=== PATIENT | male | born 1955 ===

== ENCOUNTER 2017-11-21 08:33 | Day surgery (SDC) | payer BC, OTHER ==
[2017-11-19 17:25] VITALS: BMI 25.3
--- NOTE | 2017-11-20 20:36 | CP.PCM.CON ---
History of Present Illness - History of Present Illness History of Present Illness: Neurology Consultation Note: Mr. 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 He had a ANUPAMA that did not show cardiac thrombus. He was started on aspirin and plavix and discharged home to follow up. However, he returned to the hospital with complains of worsening right side weakness, dizziness and difficulty with ambulation. Symptoms have since subsided and he is back to his baseline. He has a Jamison catheter wish evidence of a slight red tinge to the urine. Review of Systems - Review of Systems All systems: reviewed and no additional remarkable complaints except Past Patient History - Past Medical History & Family History Past Medical History?: Yes - Past Social History Smoking Status: Never Smoked - CARDIAC Hx Cardiac Disorders: Yes - PULMONARY Hx Respiratory Disorders: No - NEUROLOGICAL Hx Transient Ischemic Attacks (TIA): Yes - HEENT Hx HEENT Problems: No - HEMATOLOGICAL/ONCOLOGICAL Hx Human Immunodeficiency Virus (HIV): No - INTEGUMENTARY Hx Dermatological Problems: No - MUSCULOSKELETAL/RHEUMATOLOGICAL Hx Rheumatoid Arthritis: Yes - GASTROINTESTINAL Hx Gastrointestinal Disorders: No - GENITOURINARY/GYNECOLOGICAL Hx Prostate Problems: Yes - PSYCHIATRIC Hx Substance Use: No - SURGICAL HISTORY Hx Surgeries: Yes Hx Orthopedic Surgery: Yes (right arm) - ANESTHESIA Hx Anesthesia: Yes Hx Anesthesia Reactions: No Hx Malignant Hyperthermia: No Meds Allergies/Adverse Reactions: Allergies Allergy/AdvReac Type Severity Reaction Status Date / Time No Known Allergies Allergy Verified 11/19/17 18:41 Physical Exam - Neurological Exam Neurological exam: Alert, CN II-XII Intact, Normal Gait, Oriented x3, Reflexes Normal Additional comments: Slight right pronator drift. NIHSS =1 Assessment & Plan (1) TIA (transient ischemic attack) Assessment and Plan: The patient has recently had a full stroke work-up that was negative. It is possible that he may be having paroxysmal cardiac dysrrhythmias. I recommend placement of a loop recorder for further evaluation. Will continue dual antiplatelet therapy for now and monitor hemoglobin levels since there was a slight amount of blood in the urine. However, it may be due to trauma during insertion. Status: Acute Priority: High
[2017-11-21] MEDS ORDERED: Lidocaine 2% MPF (5 ml) Inj ONE (09:26)
== END 2017-11-21 12:10 | disposition short-term general hospital (02) ==
LOC: C.SPRAD 08:33
PROVIDERS: ATTEND Internal Medicine Interventional Cardiology
DX: I49.8 Other specified cardiac arrhythmias (principal); Z53.09 Procedure and treatment not carried out because of other contraindication

== ENCOUNTER → 2017-12-07 | Day surgery (SDC) | payer BC ==
[2017-11-19 17:25] VITALS: BMI 25.3
--- NOTE | 2017-12-08 06:19 | OP ---
Copied To: Art Muse MD Attending MD: Art Muse MD PROCEDURE DATE: 12/07/2017 PROCEDURE: Insertion of Medtronic LINQ LNQ11 loop recorder, serial #[id number]. REFERRING PHYSICIAN: Basil Frank MD PREPROCEDURE DIAGNOSIS: Cryptogenic stroke. POSTPROCEDURE DIAGNOSIS: Cryptogenic stroke. HISTORY: The patient is a very pleasant 62-year-old male with a history of hypertension who presented to [facility] at the beginning of 11/2017 with cryptogenic stroke. He presents today for electric loop recorder insertion. RISKS: The risks of the procedure were described in detail and include bleeding and infection. The procedure details and risks were described and the patient is agreeable. PROCEDURE DETAILS: After informed consent was obtained, the patient was administered 1 g of IV Ancef intravenously. The patient was prepped and draped in a sterile fashion. An area on the anterior chest in the 4th intercostal space and 2 fingerbreadths to the left was identified and infiltrated with 1% lidocaine. The Medtronic LINQ incision tool was utilized to make a small incision, and the tunneling and apparatus were utilized to insert the Medtronic LINQ loop recorder. Hemostasis was achieved with manual compression and a very small amount of portable electrocautery. Steri-Strips were applied to the wound, and this was covered with sterile dressing. PROCEDURE: Successful insertion of a Medtronic LINQ LNQ11 loop recorder, serial # [id number]. COMPLICATIONS: None. POSTPROCEDURE INSTRUCTIONS: 1. Please do not get incision wet for 3 days. 2. You can remove dressing in 3 days. 3. The wound is covered with Steri-Strips. These will fall off naturally in 2 to 3 weeks. 4. Please follow up at my electrophysiology office at [facility] at [address] [place] [address], [id number]. 5. If any questions, please call either my [place] office at [phone] or my [place] office at [phone]. Please follow up with Dr. Basil Frank as previously scheduled. Art Muse MD cc: MD Lito Soto MD Dani Korya, MD [facility] # [id number]
== END | disposition home or self-care (01) ==
LOC: C.SPRAD 08:30
PROVIDERS: ATTEND Internal Medicine
DX: I63.9 Cerebral infarction, unspecified (principal)